=== PATIENT | female | born 1970 | race African-American/Black ===

== ENCOUNTER 2024-12-16 21:21 | Inpatient (IN) | payer OTHER, MEDICAID, MEDICARE ==
[~2024-12-16] VITALS: Ht 175.3 cm; Wt 317.5 kg
[~2024-12-16 21:21] MED LIST: DULO60CA64 PO; LOSA25TA26 PO
[2024-12-16] MEDS: ONDANSETRON HCL 4MG/2ML INJ IV STA (23:29)
[2024-12-16] MEDS: MORPHINE SULFATE 4 MG/ML INJ (FOR IV/IM USE) IV STA (23:30)
[2024-12-16] MEDS: PIPERACILLIN/TAZO 3.375G/50ML 50 ML IV ONE (23:31)
[2024-12-16] MEDS: SODIUM CHLORIDE 0.9% (SEPSIS BOLUS) IV ONE (23:32)
[2024-12-17] VITALS (37 sets, daily range): BP systolic 59–153; BP diastolic 32–84; PULSE 69–90; RESP 14–24; TEMP 36.6–36.8; O2SAT 94–99
[2024-12-17 00:03] LABS: HEMATOCRIT. 37.8 % (36.0-48.0); HEMOGLOBIN. 12.3 g/dL (12.0-16.0); MEAN CORPUSCULAR HEMOGLOBIN 29.1 pg (28.0-32.0); MEAN CORPUSCULAR HGB CONC 32.4 g/dL (31.0-37.0); MEAN CORPUSCULAR VOLUME 89.8 fL (81.0-99.0); PLATELET 171 x1000/uL (130-400); RED BLOOD CELL COUNT 4.21 mill/uL (4.2-5.4); RED CELL DISTRIBUTION WIDTH 15.2 % (11.6-14.6); WHITE BLOOD COUNT 12.6 x1000/uL (4.5-11.0)
[2024-12-17 00:07] LABS: CHLORIDE 98 mEq/L (98-107); POTASSIUM 3.6 mEq/L (3.5-5.1); SODIUM 141 mEq/L (136-145)
[2024-12-17 00:08] LABS: CALCIUM 9.6 mg/dL (8.7-10.4); CARBON DIOXIDE 33 mEq/L (21-32)
[2024-12-17 00:09] LABS: DIFFERENTIAL COMMENT 1
[2024-12-17 00:13] LABS: CREATININE 2.3 mg/dL (0.6-1.0); GLUCOSE 119 mg/dL (70-105)
[2024-12-17 00:14] LABS: TROPONIN I HIGH SENSITIVITY 20 ng/L (3.0-34); UREA NITROGEN BLOOD 44 mg/dL (9-23)
[2024-12-17 00:15] LABS: ALANINE AMINOTRANSFERASE 43 IU/L (10-49); ALBUMIN 3.3 g/dL (3.2-4.8); ASPARTATE AMINOTRANSFERASE 43 IU/L (<34)
[2024-12-17 00:16] LABS: BILIRUBIN DIRECT 0.5 mg/dL (<=3.0); BILIRUBIN TOTAL 0.9 mg/dL (0.1-1.0); PROTEIN TOTAL 5.9 g/dL (6.0-8.3)
[2024-12-17 00:27] LABS: HCG SCREEN NEGATIVE
[2024-12-17 00:32] LABS: LACTIC ACID 3.3 mmol/L (0.4-2.0)
[2024-12-17] MEDS: VANCOMYCIN 1G PREMIX 200 ML IV ONE (00:34)
[2024-12-17] MEDS: NOREPINEPHRINE 8MG/250ML PMX 250 ML IV STA (01:22)
[2024-12-17 02:16] LABS: PLATELET ESTIMATE NORMAL
[2024-12-17] MEDS: MORPHINE SULFATE 4 MG/ML INJ (FOR IV/IM USE) IV ONE (03:29)
[2024-12-17 03:40] LABS: CLARITY URINE TURBID (CLEAR); COLOR URINE RED (YELLOW); GLUCOSE URINE NEGATIVE (NEGATIVE); KETONES URINE NEGATIVE (NEGATIVE); LEUKOCYTE ESTERASE URINE 3+ (NEGATIVE); NITRITE URINE NEGATIVE (NEGATIVE); OCCULT BLOOD URINE 2+ (NEGATIVE); PROTEIN URINE 3+ (NEGATIVE); SPECIFIC GRAVITY URINE 1.015 (1.005-1.030); UROBILINOGEN URINE 0.2 E.U./dL (0.2-1.0)
[2024-12-17] MEDS ORDERED: CLONIDINE 0.1MG TABLET PO PRN (04:00)
[2024-12-17] MEDS ORDERED: MAGNESIUM/ALUMINUM HYDROXIDE/SIMETHICONE 30ML UDC PO PRN (04:00)
[2024-12-17] MEDS ORDERED: IPRATROPIUM/ALBUTEROL 0.5-3(2.5)MG/3ML NEB HHN PRN (04:00)
[2024-12-17] MEDS ORDERED: DOCUSATE SODIUM 100MG CAPSULE PO PRN (04:00)
[2024-12-17] MEDS ORDERED: ACETAMINOPHEN 325MG TABLET PO PRN (04:00)
[2024-12-17 04:33] LABS: BACTERIA URINE 1+; RBC URINE TNTC /hpf (0-2); SQUAMOUS EPITHELIAL CELL URINE 1+ /lpf (RARE/1+); WBC URINE 50-100 /hpf (0-2)
[2024-12-17] MEDS: AZITHROMYCIN 500MG/250ML 250 ML IV SCH (06:00)
[2024-12-17] MEDS: PIPERACILLIN/TAZO 3.375G/50ML 50 ML IV SCH (06:00)
[2024-12-17] MEDS: LACTATED RINGERS 1,000 ML IV SCH (06:13)
[2024-12-17] MEDS ORDERED: NOREPINEPHRINE 8 MG in DEXT 5% WATER 242 ML IV PRN (06:45)
[2024-12-17] MEDS: NOREPINEPHRINE 8MG/250ML PMX 250 ML IV PRN (06:46)
[2024-12-17 08:15] LABS: CREATINE KINASE 16 IU/L (34-145); GAMMA GLUTAMYL TRANSPEPTIDASE 323 IU/L (<38); PHOSPHORUS 2.8 mg/dL (2.5-4.9)
[2024-12-17 08:20] LABS: TROPONIN I HIGH SENSITIVITY 190 ng/L (3.0-34)
[2024-12-17] MEDS: DULOXETINE HCL 60MG DR CAPSULE PO SCH (09:01)
[2024-12-17] MEDS: PANTOPRAZOLE SODIUM 40 MG/VIAL IV SCH (09:01)
[2024-12-17 09:55] LABS: *AMPHETAMINES SCREEN URINE NEGATIVE (NEGATIVE)
[2024-12-17 09:56] LABS: *BARBITURATES SCREEN URINE NEGATIVE (NEGATIVE); *BENZODIAZEPINES SCREEN URINE NEGATIVE (NEGATIVE); *COCAINE SCREEN URINE NEGATIVE (NEGATIVE)
[2024-12-17 09:57] LABS: CANNABINOID URINE SCREEN NEGATIVE (NEGATIVE); ECSTASY MDMA SCREEN URINE NEGATIVE (NEGATIVE); METHADONE URINE SCREEN NEGATIVE (NEGATIVE); OPIATES URINE SCREEN PRESUMPTIVE POSITIVE (NEGATIVE); PHENCYCLIDINE URINE SCREEN NEGATIVE (NEGATIVE)
[2024-12-17] MEDS: ONDANSETRON HCL 4MG/2ML INJ IV PRN (10:27)
[2024-12-17 11:17] LABS: POTASSIUM 3.9 mEq/L (3.5-5.1)
[2024-12-17 11:18] LABS: CALCIUM 9.7 mg/dL (8.7-10.4)
[2024-12-17 11:19] LABS: HEMATOCRIT. 38.6 % (36.0-48.0); HEMOGLOBIN. 12.3 g/dL (12.0-16.0); MEAN CORPUSCULAR HEMOGLOBIN 28.8 pg (28.0-32.0); MEAN CORPUSCULAR VOLUME 90.1 fL (81.0-99.0); MEAN PLATELET VOLUME 9.9 fl (7.4-10.4); PLATELET 173 x1000/uL (130-400); RED BLOOD CELL COUNT 4.28 mill/uL (4.2-5.4); RED CELL DISTRIBUTION WIDTH 15.3 % (11.6-14.6); WHITE BLOOD COUNT 33.9 x1000/uL (4.5-11.0)
[2024-12-17 11:24] LABS: DIFFERENTIAL COMMENT 1
[2024-12-17] MEDS: ACETAMINOPHEN 325MG TABLET PO PRN (12:20)
[2024-12-17 12:29] LABS: PLATELET ESTIMATE NORMAL
[2024-12-17] MEDS: MIDODRINE HCL 5MG TABLET PO SCH (16:44)
[2024-12-17 18:04] LABS: CREATINE KINASE < 15 IU/L (34-145); TROPONIN I HIGH SENSITIVITY 266 ng/L (3.0-34)
[2024-12-17] MEDS: GUAIFENESIN 200MG/10ML SUGAR FREE UDC PO PRN (20:21)
[2024-12-17] MEDS ORDERED: APIXABAN 5 MG TABLET PO SCH (21:00)
[2024-12-18] VITALS (41 sets, daily range): BP systolic 87–139; BP diastolic 50–83; PULSE 66–82; RESP 7–32; TEMP 36.4–36.7; O2SAT 95–100
[2024-12-18 00:58] LABS: CREATINE KINASE MB FRACTION 1.7 ng/mL (0.5-3.6)
[2024-12-18 01:38] LABS: CREATINE KINASE < 15 IU/L (34-145)
[2024-12-18 01:40] LABS: TROPONIN I HIGH SENSITIVITY 168 ng/L (3.0-34)
[2024-12-18] MEDS: BENZONATATE 100MG CAPSULE PO PRN (05:23)
[2024-12-18] MEDS: AZITHROMYCIN 500MG/250ML 250 ML IV SCH (05:40)
[2024-12-18 05:53] LABS: BASOPHILS % 0.4 % (0.0-2.0); DIFFERENTIAL COMMENT 0; EOSINOPHILS % 1.7 % (0.0-5.0); HEMATOCRIT. 37.5 % (36.0-48.0); HEMOGLOBIN. 11.8 g/dL (12.0-16.0); LYMPHOCYTES % 9.6 % (20.0-50.0); MEAN CORPUSCULAR HEMOGLOBIN 28.8 pg (28.0-32.0); MEAN CORPUSCULAR HGB CONC 31.6 g/dL (31.0-37.0); MEAN CORPUSCULAR VOLUME 91.2 fL (81.0-99.0); MEAN PLATELET VOLUME 10.3 fl (7.4-10.4); MONOCYTES % 9.3 % (2.0-8.0); PLATELET 151 x1000/uL (130-400); RED BLOOD CELL COUNT 4.11 mill/uL (4.2-5.4); RED CELL DISTRIBUTION WIDTH 15.5 % (11.6-14.6); WHITE BLOOD COUNT 22.5 x1000/uL (4.5-11.0)
[2024-12-18 06:07] LABS: PARTIAL THROMBOPLASTIN TIME 61.9 sec (23.4-31.0); PROTHROMBIN TIME 57.4 sec (9.6-11.0)
[2024-12-18 06:15] LABS: INR 6.4
[2024-12-18 06:23] LABS: CREATINE KINASE MB FRACTION 1.1 ng/mL (0.5-3.6)
[2024-12-18 06:24] LABS: CHLORIDE 99 mEq/L (98-107); POTASSIUM 3.9 mEq/L (3.5-5.1); SODIUM 140 mEq/L (136-145)
[2024-12-18 06:25] LABS: CALCIUM 9.8 mg/dL (8.7-10.4); CARBON DIOXIDE 31 mEq/L (21-32)
[2024-12-18 06:27] LABS: CREATINE KINASE < 15 IU/L (34-145)
[2024-12-18 06:28] LABS: TROPONIN I HIGH SENSITIVITY 115 ng/L (3.0-34)
[2024-12-18 06:30] LABS: ALBUMIN 3.7 g/dL (3.2-4.8); GLUCOSE 109 mg/dL (70-105); T4 FREE 1.23 ng/dL (0.89-1.76); THYROID STIMULATING HORMONE 3.15 uIU/mL (0.55-4.78); TRIGLYCERIDE 172 mg/dL (0-150)
[2024-12-18 06:31] LABS: LDL CHOLESTEROL 42 mg/dL (5-100); UREA NITROGEN BLOOD 40 mg/dL (9-23)
[2024-12-18 06:32] LABS: CHOLESTEROL 97 mg/dL (<200); HDL CHOLESTEROL < 20 mg/dL (>65)
[2024-12-18] MEDS: DULOXETINE HCL 60MG DR CAPSULE PO SCH (08:23)
[2024-12-18 10:31] LABS: ALANINE AMINOTRANSFERASE 60 IU/L (10-49); ALBUMIN 3.7 g/dL (3.2-4.8); ASPARTATE AMINOTRANSFERASE 63 IU/L (<34); BILIRUBIN DIRECT 0.5 mg/dL (<=3.0); BILIRUBIN TOTAL 0.8 mg/dL (0.1-1.0); PROTEIN TOTAL 6.5 g/dL (6.0-8.3)
[2024-12-18] MEDS: METRONIDAZOLE 500MG TABLET PO SCH (20:46)
[2024-12-18] MEDS: CEFEPIME 2GM/100ML 100 ML IV SCH (21:05)
[2024-12-19] VITALS: BP 108/60; PULSE 78; RESP 18; TEMP 36.7; O2SAT 97
[2024-12-19 04:00] VITALS: BP 108/77; PULSE 80; RESP 18; TEMP 36.8; O2SAT 97
[2024-12-19 06:20] LABS: HEMATOCRIT. 34.1 % (36.0-48.0); MEAN CORPUSCULAR HEMOGLOBIN 29.1 pg (28.0-32.0); MEAN CORPUSCULAR HGB CONC 32.3 g/dL (31.0-37.0); MEAN CORPUSCULAR VOLUME 90.1 fL (81.0-99.0); MEAN PLATELET VOLUME 10.1 fl (7.4-10.4); PLATELET 136 x1000/uL (130-400); RED BLOOD CELL COUNT 3.79 mill/uL (4.2-5.4); RED CELL DISTRIBUTION WIDTH 15.7 % (11.6-14.6); WHITE BLOOD COUNT 13.3 x1000/uL (4.5-11.0)
[2024-12-19 06:46] LABS: CALCIUM 9.3 mg/dL (8.7-10.4); POTASSIUM 3.8 mEq/L (3.5-5.1)
[2024-12-19 06:52] LABS: CREATININE 1.8 mg/dL (0.6-1.0)
[2024-12-19 07:25] LABS: DIFFERENTIAL COMMENT 1
[2024-12-19 08:00] VITALS: BP 90/45; PULSE 69; RESP 21; TEMP 36.1; O2SAT 98
[2024-12-19 10:36] LABS: PARTIAL THROMBOPLASTIN TIME 57.8 sec (23.4-31.0); PROTHROMBIN TIME 58.7 sec (9.6-11.0)
[2024-12-19 10:51] LABS: INR 6.6
[2024-12-19 12:00] VITALS: BP 100/51; PULSE 70; RESP 20; TEMP 36.3; O2SAT 98
[2024-12-19] MEDS: CEFEPIME 2GM/50ML DUPLEX 50 ML IV SCH (12:11)
[2024-12-19 13:48] LABS: ATYPICAL LYMPHOCYTES 1; NUCLEATED RED BLOOD CELLS 2 /100 WBC
[2024-12-19 13:49] LABS: PLATELET ESTIMATE NORMAL
[2024-12-19 16:00] VITALS: BP 102/54; PULSE 70; RESP 20; TEMP 36.7; O2SAT 98
[2024-12-19 20:00] VITALS: BP 102/61; PULSE 82; RESP 20; TEMP 36.9; O2SAT 98
[2024-12-20] VITALS: BP 102/77; PULSE 80; RESP 18; TEMP 37; O2SAT 98
[2024-12-20 04:00] VITALS: BP 100/70; PULSE 82; RESP 18; TEMP 36.9; O2SAT 98
[2024-12-20 08:00] VITALS: BP 97/51; PULSE 67; RESP 20; TEMP 36.5; O2SAT 97
[2024-12-20 10:12] LABS: HEMATOCRIT. 35.6 % (36.0-48.0); HEMOGLOBIN. 11.5 g/dL (12.0-16.0); MEAN CORPUSCULAR HEMOGLOBIN 29.3 pg (28.0-32.0); MEAN CORPUSCULAR HGB CONC 32.4 g/dL (31.0-37.0); MEAN CORPUSCULAR VOLUME 90.5 fL (81.0-99.0); MEAN PLATELET VOLUME 9.7 fl (7.4-10.4); PLATELET 187 x1000/uL (130-400); RED BLOOD CELL COUNT 3.94 mill/uL (4.2-5.4); RED CELL DISTRIBUTION WIDTH 15.5 % (11.6-14.6); WHITE BLOOD COUNT 10.6 x1000/uL (4.5-11.0)
[2024-12-20 10:14] LABS: DIFFERENTIAL COMMENT 1
[2024-12-20 10:17] LABS: POTASSIUM 4.1 mEq/L (3.5-5.1)
[2024-12-20 10:18] LABS: CALCIUM 9.6 mg/dL (8.7-10.4)
[2024-12-20 10:23] LABS: CREATININE 1.4 mg/dL (0.6-1.0)
[2024-12-20 12:00] VITALS: BP 109/58; PULSE 70; RESP 20; TEMP 36.4; O2SAT 98
[2024-12-20 14:12] LABS: NUCLEATED RED BLOOD CELLS 1 /100 WBC
[2024-12-20 14:13] LABS: PLATELET ESTIMATE NORMAL
[2024-12-20] MEDS: CEFEPIME 2GM/50ML DUPLEX 50 ML IV SCH (14:39)
[2024-12-20 16:00] VITALS: BP 130/64; PULSE 87; RESP 16; TEMP 36.5; O2SAT 98
[2024-12-20 20:00] VITALS: BP 120/61; PULSE 70; RESP 18; TEMP 36.7; O2SAT 98
[2024-12-21] VITALS: BP 103/77; PULSE 82; RESP 20; TEMP 37; O2SAT 97
[2024-12-21 04:00] VITALS: BP 109/57; PULSE 72; RESP 20; TEMP 36.7; O2SAT 98
[2024-12-21 06:25] LABS: CHLORIDE 102 mEq/L (98-107); POTASSIUM 3.8 mEq/L (3.5-5.1); SODIUM 144 mEq/L (136-145)
[2024-12-21 06:26] LABS: CALCIUM 9.7 mg/dL (8.7-10.4); CARBON DIOXIDE 32 mEq/L (21-32)
[2024-12-21 06:31] LABS: CREATININE 1.1 mg/dL (0.6-1.0); GLUCOSE 86 mg/dL (70-105); UREA NITROGEN BLOOD 27 mg/dL (9-23)
[2024-12-21 08:00] VITALS: BP 108/51; PULSE 76; RESP 20; TEMP 35.8; O2SAT 98
[2024-12-21 12:00] VITALS: BP 109/52; PULSE 70; RESP 20; TEMP 36.5; O2SAT 97
[2024-12-21 16:00] VITALS: BP 101/50; PULSE 69; RESP 20; TEMP 36.6; O2SAT 97
[2024-12-21 20:00] VITALS: BP 113/50; PULSE 70; RESP 20; TEMP 36.2; O2SAT 99
[2024-12-22] VITALS (7 sets, daily range): BP systolic 101–129; BP diastolic 44–62; PULSE 73–79; RESP 17–20; TEMP 36.4–37.1; O2SAT 96–99
== END 2024-12-23 00:16 | disposition short-term general hospital (02) | DRG 871 ==
LOC: ER 21:21 → EDBEDREQSVC 12-17 01:56 → EDBEDREQ 12-17 01:56 → ENRESERV 12-17 14:49 → CVICU 12-17 15:21 → 8WST 12-18 17:05
PROVIDERS: ADMIT Internal Medicine; ATTEND Internal Medicine
DX: A41.51 Sepsis due to Escherichia coli [E. coli] (principal); J18.9 Pneumonia, unspecified organism; R65.21 Severe sepsis with septic shock; Z68.45 Body mass index [BMI] 70 or greater, adult; E87.20 Acidosis, unspecified; N17.8 Other acute kidney failure; J44.0 Chronic obstructive pulmonary disease with (acute) lower respiratory infection; I82.412 Acute embolism and thrombosis of left femoral vein; D68.32 Hemorrhagic disorder due to extrinsic circulating anticoagulants; N18.9 Chronic kidney disease, unspecified; K83.8 Other specified diseases of biliary tract; K59.00 Constipation, unspecified; E78.5 Hyperlipidemia, unspecified; F17.210 Nicotine dependence, cigarettes, uncomplicated; N20.0 Calculus of kidney; T45.515A Adverse effect of anticoagulants, initial encounter; E66.813 Obesity, class 3; M79.18 Myalgia, other site; F32.A Depression, unspecified; K76.0 Fatty (change of) liver, not elsewhere classified; I87.2 Venous insufficiency (chronic) (peripheral); B96.4 Proteus (mirabilis) (morganii) as the cause of diseases classified elsewhere; R16.0 Hepatomegaly, not elsewhere classified; Z87.442 Personal history of urinary calculi; Z79.899 Other long term (current) drug therapy; Z74.01 Bed confinement status; Z90.49 Acquired absence of other specified parts of digestive tract; Y92.89 Other specified places as the place of occurrence of the external cause; Z79.01 Long term (current) use of anticoagulants; I12.9 Hypertensive chronic kidney disease with stage 1 through stage 4 chronic kidney disease, or unspecified chronic kidney disease
CPT/HCPCS: 36415; 71045; 76700; 80048; 80061; 80076; 80305; 81003; 82040; 82550; 82553; 82977; 83036; 83605; 83735; 83880; 84100; 84145; 84439; 84443; 84484; 84703; 85025; 86850; 86900; 87070; 87077; 87186; 93005; 93306; 99291; A4606; J0456; J0692; J2270; J2405; J2470; J2543; J3370; J3490; J7030; J7120